=== PATIENT | male | born 1945 | race Caucasian/White ===

== ENCOUNTER 2018-01-26 03:15 | Emergency (ER) | payer OTHER ==
[2018-01-26] MEDS ORDERED: NS 1,000 ML IV ONE (03:24)
[2018-01-26 03:29] LABS: PLATELET COUNT 206 10^3/uL (150-400)
--- NOTE | 2018-01-26 04:31 | EDPHY ---
H & P Stated Complaint: right flank pain, and loose stool Time Seen by Provider: 01/26/18 03:24 HPI/ROS: Chief Complaint: Right back pain status post fall, diarrhea HPI: 72-year-old male had a mechanical trip and fall 2 nights ago, striking his right flank on the edge of his couch. He has been having pain since that time it took 1 Percocet 2 evenings ago. He did have some constipation after that so he drank a bottle of magnesium citrate yesterday morning. He has been having diarrhea since that time. No blood or dark black. Some mild abdominal cramping pain which is not severe. No fevers or chills. He has been able to keep fluids down. No numbness or weakness. He is concerned about his persistent diarrhea getting dehydrated. ROS: 10 point Review of Systems is negative except as noted in the HPI. Social History: Denies smoking Family History: non-contributory Physical Exam: Gen: Awake, Alert, No Distress HEENT: Nose: no rhinorrhea Eyes: PERRLA, EOMI Mouth: Moist mucosa Neck: Supple, no JVD Chest: he does have tenderness in his right lateral ribs 10 11 reproducing his presenting complaint, lungs clear to auscultation Heart: S1, S2 normal, no murmur Abd: Soft, non-tender, no guarding Back: no CVA tenderness, no midline tenderness, Ext: no edema, non-tender Skin: no rash Neuro: CN II-XII intact, Sensation grossly intact, Strength 5/5 in bilateral upper and lower extremities - Personal History Current Tetanus Diphtheria and Acellular Pertussis (TDAP): Yes Tetanus Vaccine Date: < 10 years - Medical/Surgical History Hx Asthma: No Hx Chronic Respiratory Disease: No Hx Diabetes: No Hx Cardiac Disease: Yes Hx Renal Disease: No Hx Cirrhosis: No Hx Alcoholism: No Hx HIV/AIDS: No Hx Splenectomy or Spleen Trauma: No Other PMH: Prostate CA, hip replacement, hernia, HNT, hypercholesterol. - Social History Smoking Status: Former smoker Constitutional: Initial Vital Signs Temperature (C) 36.9 C 01/26/18 03:28 Heart Rate 80 01/26/18 03:28 Respiratory Rate 20 01/26/18 03:28 Blood Pressure 129/73 H 01/26/18 03:28 O2 Sat (%) 94 01/26/18 03:28 O2 Delivery Mode Room Air Allergies/Adverse Reactions: lisinopril [From Zestril] Allergy (Verified 01/26/18 03:27) Home Medications: Medication Instructions Recorded Ibuprofen [Motrin (*)] 200 mg PO DAILY PRN 10/02/14 LISINOPRIL/HYDROCHLOROTHIAZIDE 1 each PO DAILY 10/02/14 [PRINZIDE 20-25 MG TABLET] Multivitamins [Multivitamin (*)] 1 each PO DAILY 10/02/14 Omeprazole [Prilosec] 40 mg PO DAILY PRN 10/02/14 Simvastatin [Zocor 10 mg] 10 mg PO DAILY18 10/02/14 traZODone [traZODONE 50MG (*)] 50 mg PO HS 10/02/14 Medical Decision Making ED Course/Re-evaluation: 72-year-old male presenting with diarrhea after drinking a bottle magnesium citrate for constipation from taking a single Percocet. He is complaining of right-sided posterior rib pain. He has no abdominal wall tenderness. He does have point tenderness in his posterior ribs 10 11. There is no tenderness the AP or lateral compression of his chest wall. Breath sounds are clear. No pleuritic chest pain. Abdomen is soft and benign. Given IV fluids here. He is ambulating without any difficulty. Will discharge with follow-up with primary care physician. He does have a leukocytosis is likely secondary to his diarrhea. - Data Points Laboratory Results: Laboratory Results 01/26/18 03:18 01/26/18 03:18 01/26/18 01/26/18 03:18 03:18 WBC 14.32 10^3/uL H 10^3/uL (3.80-9.50) RBC 4.17 10^6/uL L 10^6/uL (4.40-6.38) Hgb 13.5 g/dL L g/dL (13.7-17.5) Hct 38.4 % L % (40.0-51.0) MCV 92.1 fL fL (81.5-99.8) MCH 32.4 pg pg (27.9-34.1) MCHC 35.2 g/dL g/dL (32.4-36.7) RDW 13.2 % % (11.5-15.2) Plt Count 206 10^3/uL 10^3/uL (150-400) MPV 9.5 fL fL (8.7-11.7) Neut % (Auto) 89.6 % H % (39.3-74.2) Lymph % (Auto) 4.7 % L % (15.0-45.0) [place] % (Auto) 5.2 % % (4.5-13.0) Eos % (Auto) 0.0 % L % (0.6-7.6) Baso % (Auto) 0.2 % L % (0.3-1.7) Nucleat RBC Rel Count 0.0 % % (0.0-0.2) Absolute Neuts (auto) 12.82 10^3/uL H 10^3/uL (1.70-6.50) Absolute Lymphs (auto) 0.68 10^3/uL L 10^3/uL (1.00-3.00) Absolute Monos (auto) 0.74 10^3/uL 10^3/uL (0.30-0.80) Absolute Eos (auto) 0.00 10^3/uL L 10^3/uL (0.03-0.40) Absolute Basos (auto) 0.03 10^3/uL 10^3/uL (0.02-0.10) Absolute Nucleated RBC 0.00 10^3/uL 10^3/uL (0-0.01) Immature Gran % 0.3 % % (0.0-1.1) Immature Gran # 0.05 10^3/uL 10^3/uL (0.00-0.10) Sodium 137 mEq/L mEq/L (135-145) Potassium 4.5 mEq/L mEq/L (3.3-5.0) Chloride 98 mEq/L mEq/L (97-110) Carbon Dioxide 25 mEq/l mEq/l (22-31) Anion Gap 14 mEq/L mEq/L (8-16) BUN 22 mg/dL mg/dL (7-23) Creatinine 1.0 mg/dL mg/dL (0.7-1.3) Estimated GFR > 60 Glucose 130 mg/dL H mg/dL (70-100) Calcium 10.6 mg/dL H mg/dL (8.5-10.4) Medications Given: Discontinued Medications Sodium Chloride (Ns) 1,000 mls @ 0 mls/hr IV ONCE ONE; Wide Open PRN Reason: Protocol Stop: 01/26/18 03:25 Last Admin: 01/26/18 03:31 Dose: 1,000 mls Departure - Departure Disposition: Home, Routine, Self-Care Clinical Impression: Diarrhea, Rib pain Condition: Good Instructions: Acute Diarrhea (ED), Chest Wall Pain (ED) Additional Instructions: Make sure to drink plenty of fluids. You may take acetaminophen or ibuprofen for your rib pain. Return to the emergency depart for increasing abdominal pain, nausea vomiting, fevers, chills, or any other concerns. Follow up with primary care physician in 3-4 days for further evaluation. [facility]Other] - As per Instructions
[2018-01-26 05:40] VITALS: BP 139/62
== END 2018-01-26 05:41 | disposition home or self-care (01) ==
DX: S29.9XXA Unspecified injury of thorax, initial encounter (principal); R19.7 Diarrhea, unspecified; E86.9 Volume depletion, unspecified; Z85.46 Personal history of malignant neoplasm of prostate; Z87.891 Personal history of nicotine dependence; W01.190A Fall on same level from slipping, tripping and stumbling with subsequent striking against furniture, initial encounter